=== PATIENT | female | born 1995 | race Caucasian/White ===

== ENCOUNTER → 2020-03-12 | Outpatient (CLI) | payer MEDICAID ==
[2020-03-12 10:41] LABS: HEMATOCRIT 42.9 % (36.0-47.0); HEMOGLOBIN 14.5 g/dl (12.0-15.5); MEAN CORPUSCULAR HEMOGLOBIN 31.9 pg (27.0-33.0); MEAN CORPUSCULAR HGB CONC 33.8 g/dl (32.0-36.5); MEAN CORPUSCULAR VOLUME 94.3 fl (80.0-96.0); PLATELET COUNT, AUTOMATED 263 10^3/uL (150-450); RED BLOOD COUNT 4.55 10^6/uL (4.00-5.40); WHITE BLOOD COUNT 8.2 10^3/uL (4.0-10.0)
[2020-03-12 10:52] LABS: ALBUMIN 3.7 GM/DL (3.2-5.2); ALT/SGPT 14 U/L (12-78); BILIRUBIN,TOTAL 0.5 MG/DL (0.2-1.0); BLOOD UREA NITROGEN 10 MG/DL (7-18); CALCIUM LEVEL 8.5 MG/DL (8.5-10.1); CARBON DIOXIDE LEVEL 25 MEQ/L (21-32); CHLORIDE LEVEL 112 MEQ/L (98-107); CHOLESTEROL LEVEL 135 MG/DL (<200); CHOLESTEROL RISK RATIO 2.288 (<5); CREATININE FOR GFR 0.73 MG/DL (0.55-1.30); GLOMERULAR FILTRATION RATE > 60.0 (>60); GLUCOSE, FASTING 88 MG/DL (70-100); HDL CHOLESTEROL 59 MG/DL (>40); LDL CHOLESTEROL 66 MG/DL (<100); NON-HDL-C 76 MG/DL; POTASSIUM SERUM 4.2 MEQ/L (3.5-5.1); SODIUM LEVEL 141 MEQ/L (136-145); T UPTAKE 33 % (30-39); TOTAL PROTEIN 6.6 GM/DL (6.4-8.2); TRIGLYCERIDES LEVEL 50 MG/DL (<150)
[2020-03-12 10:53] LABS: FREE THYROXINE INDEX 2.4 % (1.3-4.8); THYROXINE (T4) 7.2 UG/DL (4.5-12.0); TOTAL 25(OH) VITAMIN D 36.8 NG/ML (30.0-100.0)
--- NOTE | 2020-03-12 18:07 | ECGEPIP ---
[facility] Test Date: 2020-03-12 Pat Name: MAT KENNEDY Department: Room: - Gender: Female [employer]: LEAH : 1995 Requested By: Megan Nicholas FPMHNP-BC Order Number: [id number] Reading MD: Ventura Garcia Measurements Intervals Shiro Rate: 57 P: 76 OR: 137 QRS: 79 QRSD: 94 T: 49 QT: 395 QTc: 386 Interpretive Statements Sinus bradycardia with sinus arrhythmia Low QRS complex voltage in the limb leads Comparison tracing not on file Electronically Signed on 03-12-2020 18:07:03 EST by Ventura Garcia
== END ==
LOC: M LAB 09:03
PROVIDERS: ATTEND Nurse Practitioner Psychiatric/Mental Health
DX: F33.1 Major depressive disorder, recurrent, moderate (principal)

== ENCOUNTER → 2020-07-10 | Outpatient (REF) | payer MEDICAID, OTHER ==
[2020-07-10 18:52] LABS: HEMOGLOBIN 13.1 g/dl (12.0-15.5); MEAN CORPUSCULAR HEMOGLOBIN 32.5 pg (27.0-33.0); MEAN CORPUSCULAR HGB CONC 34.5 g/dl (32.0-36.5); MEAN CORPUSCULAR VOLUME 94.3 fl (80.0-96.0); PLATELET COUNT, AUTOMATED 284 10^3/uL (150-450); RED BLOOD COUNT 4.03 10^6/uL (4.00-5.40); WHITE BLOOD COUNT 11.6 10^3/uL (4.0-10.0)
[2020-07-10 20:09] LABS: HIV 1&2 SCREEN CENTAUR NEGATIVE (NEGATIVE)
== END ==
LOC: M PLALAB 15:06
PROVIDERS: ATTEND Advanced Practice Midwife
DX: O99.331 Smoking (tobacco) complicating pregnancy, first trimester (principal)

== ENCOUNTER → 2020-08-14 | Outpatient (CLI) | payer OTHER | LOC: M WHC 07:57 | PROVIDERS: ATTEND Obstetrics & Gynecology | DX: Z3A.17 17 weeks gestation of pregnancy (principal); Z53.9 Procedure and treatment not carried out, unspecified reason ==

== ENCOUNTER → 2020-09-02 | Outpatient (CLI) | payer OTHER ==
--- NOTE | 2020-09-02 21:40 | REP ---
INDICATION: ANATOMY COMPARISON: None. TECHNIQUE: Transabdominal obstetrical ultrasound with color Doppler evaluation. FINDINGS: Examination demonstrates a single live intrauterine in breech presentation. motion is identified by technologist. Placenta is noted anterior and grade 1 without evidence for placenta previa or abruption. Amniotic fluid volume is normal. Cervix measures 3.6 cm in length and appears closed. Synechia identified extending from the anterior margin of the placenta. Gestational age by LMP 20 weeks 4 days with ТАТЬЯНА 01/16/2021. Gestational age by current measurements 20 weeks 4 days with ТАТЬЯНА 01/16/2021. FHR equals 152 beats per minute. BPD: 4.7 cm at 20 weeks 2 days HC: 17.9 cm at 20 weeks 2 days AC: 15.8 cm at 20 weeks 6 days FL: 3.4 cm at 20 weeks 5 days HL: 3.3 cm at 20 weeks 6 days HC/AC: 1.14 Estimated weight 373 grams (54thpercentile). Anatomical assessment demonstrates normal structures including cranium, choroid plexus, cavum, cerebellum/posterior fossa, facial features, lungs, four-chamber heart/ventricular outflow tracts, diaphragm, stomach, cord insertion/three-vessel cord, kidneys/bladder, and extremities. IMPRESSION: Single live intrauterine in breech presentation. Synechia from the anterior placenta. Limited evaluation of the spine. Remainder of the anatomical assessment is complete and normal. <Electronically signed by Arvind Le > 09/02/20 [id number]
== END ==
LOC: M WHC 13:10
PROVIDERS: ATTEND Obstetrics & Gynecology
DX: Z36.89 Encounter for other specified antenatal screening (principal); Z3A.20 20 weeks gestation of pregnancy; O32.1XX0 Maternal care for breech presentation, not applicable or unspecified; O43.892 Other placental disorders, second trimester

== ENCOUNTER → 2020-11-11 | Outpatient (CLI) | payer OTHER ==
[~2020-11-11] MED LIST: PRENTAB9 PO
== END ==
LOC: M WHC 12:44
PROVIDERS: ATTEND Advanced Practice Midwife
DX: Z36.89 Encounter for other specified antenatal screening (principal); Z3A.28 28 weeks gestation of pregnancy

== ENCOUNTER → 2020-11-12 | Outpatient (CLI) | payer OTHER ==
[2020-11-12 13:52] LABS: HEMATOCRIT 34.8 % (36.0-47.0); HEMOGLOBIN 11.9 g/dl (12.0-15.5); MEAN CORPUSCULAR HEMOGLOBIN 33.4 pg (27.0-33.0); MEAN CORPUSCULAR HGB CONC 34.2 g/dl (32.0-36.5); MEAN CORPUSCULAR VOLUME 97.8 fl (80.0-96.0); PLATELET COUNT, AUTOMATED 271 10^3/uL (150-450); RED BLOOD COUNT 3.56 10^6/uL (4.00-5.40); WHITE BLOOD COUNT 14.3 10^3/uL (4.0-10.0)
== END ==
LOC: M PLALAB 10:09
PROVIDERS: ATTEND Advanced Practice Midwife
DX: Z36.89 Encounter for other specified antenatal screening (principal); Z3A.26 26 weeks gestation of pregnancy

== ENCOUNTER → 2020-12-12 | Outpatient (CLI) | payer OTHER | LOC: M WHC 11:40 | PROVIDERS: ATTEND Obstetrics & Gynecology | DX: O26.843 Uterine size-date discrepancy, third trimester (principal); Z53.9 Procedure and treatment not carried out, unspecified reason ==

== ENCOUNTER → 2020-12-23 | Outpatient (REF) | payer OTHER | LOC: M SFHCWAGY 17:23 | PROVIDERS: ATTEND Obstetrics & Gynecology | DX: O99.333 Smoking (tobacco) complicating pregnancy, third trimester (principal); Z36.89 Encounter for other specified antenatal screening; Z3A.00 Weeks of gestation of pregnancy not specified ==

== ENCOUNTER 2021-01-12 23:08 | Inpatient (IN) | payer OTHER ==
[~2021-01-12] VITALS: Ht 172.7 cm; Wt 65.6 kg
[2021-01-12 23:28] VITALS: BP 114/72
[2021-01-13] VITALS (36 sets, daily range): BP systolic 90–128; BP diastolic 52–87
[2021-01-13] MEDS ORDERED: PRENTAB9 PO (00:48)
[2021-01-13] MEDS ORDERED: miSOPROStol 50MCG 1/2 TABLET PO SCH (03:00)
--- NOTE | 2021-01-13 03:41 | HPEPDOC ---
Obstetrical History & Physical General Date of Admission Jan 13, 2021 at 02:36 History of Present Illness 25yo at 39w4d for IOL Chief Complaint: Induction of labor Information Provided By: Patient Age: 25 : 3 Livin Care Care: Good Care Number of Visits: 8 Dating Final EDC: Jan 16, 2021 Final EDC by: 1st trimester (US) EGA at Admission: 39 Past Medical History Past Obstetrical History #1: Date of Delivery: Jan 15, 2016 Type of Delivery: Spontaneous Vaginal Del. Sex of : Female Complications: No Past Obstetrical History #2: Date of Delivery: Feb 16, 2019 Sex of : Female Complications: No Past Medical History Surgical History: Denies/None Family History Significant Family History: Cancer Social History * Smoker: current smoker Alcohol: Denies Drugs: denies Allergies Coded Allergies: No Known Allergies (Unverified , 01/12/21) Medications Scheduled No.137/Iron/Folic Acd ( Vitamin Tablet) 1 Each Tablet, 1 TAB PO DAILY Physical Examination Physical Examination GENERAL: Alert and oriented times three. BREAST: . ABDOMEN: Gravid and non-tender to touch. FETUS: Is vertex (VTX) by sterile vaginal examination (SVE), fetus is vertex (VTX) by Zach. HEART RATE: Regular rate and rhythm. LUNGS: Clear to auscultation (CTA). Vital Signs/I&O Vital Signs Date Time Temp Pulse Resp B/P (MAP) Pulse Ox O2 Delivery O2 Flow Rate FiO2 01/13/21 01:31 83 16 107/67 (80) 01/12/21 23:28 98.9 Laboratory Data 24H LABS Laboratory Tests 2 01/13/21 02:44: Serology Scanned Report Hepatitis B Testing Pertinent Laboratoy Data Blood Type: O+ RBC Antibody Screen: Negative HIV: Negative Hepatitis B: Negative Hepatitis C: Negative Rapid Plasma Reagin: Nonreactive Chlamydia/Gonorrhea: Negative Group B Streptococcus: Negative Glucose Tolerance Test: 124 Anatomy Ultrasound Placenta Location: Anterior Normal Anatomy: Yes Placenta Previa: No Vaginal Examination Dilation: 1cm Effacement: 30% Station: -3 Assessment Variability: Moderate Assessment/Plan Assessment 25-year-old 3 para 2 at 39 weeks 4 days here for induction of labor Reassuring status Plan Admit and orient. Repairer and consent. Group B Streptococcus (GBS) negative. Labs and intravenous (IV) per unit protocol. Counseled on Pitocin and induction of labor (IOL). Anticipate normal spontaneous delivery (). C-S as appropriate. Labor and Delivery Counseling Patient thoroughly counseled regards induction labor. Discussed medication as well as procedures performed labor and delivery. Patient's been verbally consented for emergency surgery blood products anesthesia and desires to proceed with admission. We'll start her induction with 50 g oral misoprostol. DALTON ALEX MD. Jan 13, 2021 03:41
[2021-01-13 03:58] LABS: HEMATOCRIT 34.8 % (36.0-47.0); HEMOGLOBIN 12.2 g/dl (12.0-15.5); MEAN CORPUSCULAR HEMOGLOBIN 34.2 pg (27.0-33.0); MEAN CORPUSCULAR HGB CONC 35.1 g/dl (32.0-36.5); MEAN CORPUSCULAR VOLUME 97.5 fl (80.0-96.0); PLATELET COUNT, AUTOMATED 239 10^3/uL (150-450); RED BLOOD COUNT 3.57 10^6/uL (4.00-5.40); WHITE BLOOD COUNT 20.1 10^3/uL (4.0-10.0)
[2021-01-13] MEDS: miSOPROStol 50MCG 1/2 TABLET PO SCH ×3 (06:13→14:22)
[2021-01-13] MEDS ORDERED: SLF 3 ML SYR IV PRN (14:40)
[2021-01-13] MEDS ORDERED: OXYTOCIN DRIP 30 UNITS in IV 1 EA IV SCH (18:30)
[2021-01-13] MEDS: LR 1,000 ML IV SCH ×2 (18:51→22:24)
[2021-01-13] MEDS ORDERED: FENTANYL 2MCG/ML ROPIVACAINE 0.2% IN 0.9% NACL 100ML IVBAG As Ordered ONE (21:49)
[2021-01-13] MEDS ORDERED: SLF 3 ML SYR IV SCH (22:00)
[2021-01-13] MEDS ORDERED: ePHEDrine SULFATE 25 MG/5 ML(5MG/ML) SYRINGE As Ordered ONE (22:35)
[2021-01-13] MEDS ORDERED: ePHEDrine SULFATE 25 MG/5 ML(5MG/ML) SYRINGE IV PRN (23:10)
[2021-01-13] MEDS ORDERED: LACTATED RINGER'S 1000 ML IV PRN (23:10)
[2021-01-13] MEDS ORDERED: EPIDURAL COMMENT XX SCH (23:10)
[2021-01-13] MEDS ORDERED: FENTANYL/ROPIVACAINE/NACL BAG 100 ML EPIDURAL SCH (23:10)
[2021-01-13] MEDS ORDERED: EPIDURAL/PCA KEYS XX PRN (23:10)
[2021-01-13] MEDS ORDERED: NALOXONE INJ 0.4MG/1ML VIAL (J2310 PER 1MG) IV PRN (23:10)
[2021-01-13] MEDS ORDERED: ONDANSETRON 4MG/2ML VIAL IV PRN (23:10)
[2021-01-13] MEDS ORDERED: diphenhydrAMINE 50MG/ML VIAL (J1200) IV PRN (23:10)
[2021-01-13] MEDS ORDERED: REFRIGERATOR IV KEYS XX PRN (23:10)
[2021-01-14] VITALS (10 sets, daily range): BP systolic 98–121; BP diastolic 52–69
[2021-01-14] MEDS ORDERED: LIDOCAINE 1% MDV 20ML VIAL As Ordered ONE (00:20)
[2021-01-14] MEDS ORDERED: ACETAMINOPHEN TAB 650MG DOSE (2X325MG) PO PRN (00:55)
[2021-01-14] MEDS ORDERED: IBUPROFEN 800 MG TAB PO PRN (00:55)
[2021-01-14] MEDS ORDERED: ACETAMINOPHEN 500 MG TAB PO PRN (00:55)
[2021-01-14] MEDS ORDERED: OXYTOCIN DRIP 30 UNITS in IV 1 EA IV SCH (00:55)
[2021-01-14] MEDS ORDERED: DOCUSATE SODIUM 100MG CAPSULE PO PRN (00:55)
[2021-01-14] MEDS ORDERED: MEASLES,MUMPS,RUBELLA VACCINE INJ (MMR-II) (90707) SC SCH (00:55)
[2021-01-14] MEDS ORDERED: RHOGAM 300 MCG (1500 IU) INJ (J2790) IM SCH (00:55)
[2021-01-14] MEDS ORDERED: DIBUCAINE 1% OINTMENT 30GM TOP PRN (00:55)
[2021-01-14] MEDS ORDERED: METHYLERGONOVINE MALEATE 0.2 MG TAB PO PRN (00:55)
[2021-01-14] MEDS ORDERED: LIDOCAINE 1% MDV 20ML VIAL INFIL ONE (01:00)
[2021-01-14] MEDS: IBUPROFEN 600MG TAB PO PRN (06:44)
--- NOTE | 2021-01-14 07:37 | DN ---
DELIVERY NOTE DATE OF DELIVERY: 01/13/2021 TIME OF : GENDER: APGARS: LACERATIONS: ANESTHESIA: ESTIMATED BLOOD LOSS: COUNTS: DESCRIPTION OF DELIVERY: Laya is a 25-year-old 3 para 3-0-0-3 now who was admitted to labor and delivery for induction of labor. Misoprostol and IV Pitocin were used and labor ensued. She used an epidural for her labor coping. She had assisted rupture of membranes for a moderate amount of clear fluid at 2341. She reached complete dilation at 0006. She pushed to a normal spontaneous vaginal delivery of a live female in OA position with restitution to ROT position at 0014. There was no nuchal cord. Shoulders delivered spontaneously and the corpus immediately followed. The 's mouth and nares was bulb suctioned and she was placed on the maternal abdomen crying and active. Cord was clamped times two and cut by the father of the baby under my direction. Cord blood was obtained. Spontaneous expulsion of an intact placenta with three-vessel cord by York mechanism was at 0017. Uterine hemostasis achieved with IV Pitocin rapid infusion and uterine fundal massage. Estimated blood loss: 350 mL. Perineum and vagina inspected and noted to be a 1st-degree midline laceration. Laceration infiltrated with 1% lidocaine and repaired with 3-0 Vicryl Rapide in the usual fashion. Eidson female weighed 6 pounds 13 ounces (3090 grams); Apgars were 8 and 9. Mom is planning to attempt to breast feed her daughter, and the family has named her Allyasvetlana. At the close of delivery, lap counts, needle counts and instrument counts were correct and verified.
[2021-01-14] MEDS: PRENATAL VITAMINS CHEWABLE TABLET PO SCH (08:25)
[2021-01-15 05:55] VITALS: BP 93/52
[2021-01-15] MEDS: IBUPROFEN 600MG TAB PO PRN (08:08)
[2021-01-15] MEDS: PRENATAL VITAMINS CHEWABLE TABLET PO SCH (08:08)
== END 2021-01-15 13:40 | disposition home or self-care (01) | DRG 560 ==
LOC: M LDO 23:08 → M LDI 01-13 02:36 → M OBS 01-14 15:12
PROVIDERS: ADMIT Obstetrics & Gynecology; ATTEND Obstetrics & Gynecology
PROC: 10E0XZZ Delivery of Products of Conception, External Approach (ICD-10-PCS; principal; 2021-01-13)
PROC: 0HQ9XZZ Repair Perineum Skin, External Approach (ICD-10-PCS; 2021-01-13)
PROC: 3E033VJ Introduction of Other Hormone into Peripheral Vein, Percutaneous Approach (ICD-10-PCS; 2021-01-13)
PROC: 3E0DXGC Introduction of Other Therapeutic Substance into Mouth and Pharynx, External Approach (ICD-10-PCS; 2021-01-13)
DX: O70.0 First degree perineal laceration during delivery (principal); Z37.0 Single live birth; Z3A.39 39 weeks gestation of pregnancy

== ENCOUNTER 2022-03-11 07:54 | Emergency (ER) | payer OTHER ==
[~2022-03-11] VITALS: Ht 172.7 cm; Wt 54.1 kg
[2022-03-11 07:56] VITALS: BP 127/80
== END 2022-03-11 10:50 | disposition left against medical advice (07) ==
LOC: M ED 07:54
DX: Z53.21 Procedure and treatment not carried out due to patient leaving prior to being seen by health care provider (principal)

== ENCOUNTER 2023-03-19 20:22 | Emergency (ER) | payer OTHER ==
[~2023-03-19] VITALS: Ht 172.7 cm; Wt 54.4 kg
[2023-03-19 21:14] LABS: HEMATOCRIT 40.8 % (36.0-47.0); HEMOGLOBIN 14.1 g/dl (12.0-15.5); MEAN CORPUSCULAR HEMOGLOBIN 32.3 pg (27.0-33.0); MEAN CORPUSCULAR HGB CONC 34.6 g/dl (32.0-36.5); MEAN CORPUSCULAR VOLUME 93.6 fl (80.0-96.0); PLATELET COUNT, AUTOMATED 299 10^3/uL (150-450); RED BLOOD COUNT 4.36 10^6/uL (4.00-5.40); WHITE BLOOD COUNT 10.5 10^3/uL (4.0-10.0)
[2023-03-19 21:30] LABS: AMPHETAMINES LEVEL URINE NEGATIVE (NEGATIVE); BARBITURATES URINE NEGATIVE (NEGATIVE); BENZODIAZEPINES URINE NEGATIVE (NEGATIVE); COCAINE METABOLITE URINE NEGATIVE (NEGATIVE); METHADONE URINE NEGATIVE (NEGATIVE); OPIATES URINE NEGATIVE (NEGATIVE); PHENCYCLIDINE URINE NEGATIVE (NEGATIVE)
[2023-03-19 21:31] LABS: CANNABINOIDS URINE POSITIVE (NEGATIVE)
[2023-03-19 21:53] LABS: ALBUMIN 3.9 G/DL (3.2-5.2); ALKALINE PHOSPHATASE 49 U/L (46-116); ALT/SGPT 17 U/L (7.0-40); AST/SGOT 10 U/L (<34); BILIRUBIN,DIRECT 0.2 MG/DL (<0.4); BILIRUBIN,TOTAL 0.5 MG/DL (0.3-1.2); BLOOD UREA NITROGEN 9 MG/DL (9-23); CALCIUM LEVEL 9.1 MG/DL (8.5-10.1); CARBON DIOXIDE LEVEL 26 MMOL/L (20-31); CHLORIDE LEVEL 107 MMOL/L (98-107); CREATININE FOR GFR 0.75 MG/DL (0.55-1.30); ETHYL ALCOHOL (ETHANOL) < 0.003 % (0.000-0.010); GLOMERULAR FILTRATION RATE > 60.0 (>60); GLUCOSE, FASTING 101 MG/DL (60-100); SALICYLATE LEVEL < 3.0 MG/DL (<30); SODIUM LEVEL 143 MMOL/L (136-145); THYROID STIMULATING HORMONE 2.329 uIU/ML (0.55-4.78); TOTAL PROTEIN 6.6 G/DL (5.7-8.2)
[2023-03-19 21:58] LABS: HCG, SERUM QUALITATIVE NEGATIVE (NEGATIVE)
[2023-03-20 03:01] VITALS: BP 109/64; TEMP 96.9; O2SAT 99
== END 2023-03-20 03:47 | disposition home or self-care (01) ==
LOC: M ED 20:22
DX: F32.A Depression, unspecified (principal); F17.210 Nicotine dependence, cigarettes, uncomplicated

== ENCOUNTER → 2023-08-03 | Outpatient (REF) | payer OTHER ==
[2023-08-04 13:42] LABS: Trichomonas vaginalis (AMP) NOT DETECTED (NEGATIVE)
[2023-08-04 14:06] LABS: GC DNA AMPLIFICATION NEGATIVE (NEGATIVE)
== END ==
LOC: M LAB REF 10:23
PROVIDERS: ATTEND Physician Assistant
DX: R30.0 Dysuria (principal)

== ENCOUNTER → 2023-08-10 | Outpatient (REF) | payer OTHER ==
[2023-08-10 21:00] LABS: Trichomonas vaginalis (AMP) NOT DETECTED (NEGATIVE)
[2023-08-10 21:23] LABS: GC DNA AMPLIFICATION NEGATIVE (NEGATIVE)
== END ==
LOC: M WUC 19:42
PROVIDERS: ATTEND Physician Assistant
DX: R30.0 Dysuria (principal)